=== PATIENT | female | born 1990 | race Caucasian/White ===

== ENCOUNTER 2023-10-12 13:50 | Emergency (ER) | payer MEDICAID, OTHER ==
[~2023-10-12] VITALS: Ht 157.5 cm; Wt 69.9 kg
[2023-10-12 13:54] VITALS: BP 113/70; PULSE 76; RESP 18; TEMP 98.6; O2SAT 100
[2023-10-12] MEDS ORDERED: DICYCLOMINE HCL LIQUID 10 MG/5 ML UDC ONE (14:45)
[2023-10-12] MEDS ORDERED: ALUMINUM HYD/MAG/SIMETHICONE 30 ML UDC ONE (14:46)
[2023-10-12] MEDS: DICYCLOMINE HCL LIQUID 20 MG, ALUMINUM HYD/MAG/SIMETHICONE 30 ML, LIDOCAINE VISCOUS 2% ... PO ONE (14:52)
[2023-10-12 15:05] LABS: EOSINOPHILS % (AUTO) 0.1 % (0.0-4.0); HEMATOCRIT 37.9 % (36-48); HEMOGLOBIN 12.8 g/dL (12.0-16.0); LYMPHOCYTES # (AUTO) 0.6 K/uL (2.5-16.5); LYMPHOCYTES % (AUTO) 4.9 % (20.5-51.1); MEAN CORPUSCULAR HEMOGLOBIN 30 pg (27-31); MEAN CORPUSCULAR HGB CONC 34 g/dL (33-37); MEAN CORPUSCULAR VOLUME 88.8 fL (80-94); MONOCYTES # (AUTO) 0.4 K/uL (0.8-1.0); MONOCYTES % (AUTO) 2.9 % (1.7-9.3); NEUTROPHILS # (AUTO) 11.5 K/uL (1.8-7.7); NEUTROPHILS % (AUTO) 92.1 % (42.2-75.2); PLATELET COUNT (AUTO) 281 K/uL (140-450); RED BLOOD CELL COUNT(AUTO) 4.27 MIL/uL (4.20-5.40); RED CELL DISTRIBUTION WIDTH 13.9 % (11.6-13.7); WHITE BLOOD COUNT (AUTO) 12.5 K/uL (4.8-10.8)
[2023-10-12 15:17] LABS: ALBUMIN 3.5 g/dL (3.4-5.0); ANION GAP 12.7 (8-16); CALCIUM 9.1 mg/dL (8.5-10.1); CARBON DIOXIDE 27.1 mmol/L (21-32); CREATININE 0.8 mg/dL (0.6-1.3); POTASSIUM 3.8 mmol/L (3.5-5.1); TOTAL BILIRUBIN 0.5 mg/dL (0.0-1.0); TOTAL PROTEIN, SERUM 8.6 g/dL (6.4-8.2)
[2023-10-12] MEDS ORDERED: MAG-27 PO (16:40)
[2023-10-12] MEDS ORDERED: ONDA-188 PO (16:40)
[2023-10-12] MEDS ORDERED: FAMO-90 PO (16:40)
[2023-10-12 16:55] VITALS: BP 107/59; PULSE 69; RESP 18; TEMP 98.6; O2SAT 98
== END 2023-10-12 16:54 | disposition home or self-care (01) ==
LOC: MED 13:50
DX: R10.13 Epigastric pain (principal); R74.01 Elevation of levels of liver transaminase levels; Z79.899 Other long term (current) drug therapy
CPT/HCPCS: 36415; 76705; 80053; 81002; 81025; 83690; 85025; 99284; Q0092